=== PATIENT | female | born 1945 | race Caucasian/White ===

== ENCOUNTER 2018-06-18 17:28 | Emergency (ER) | payer MEDICARE, MEDICAID ==
[~2018-06-18] VITALS: Ht 165.1 cm; Wt 55.0 kg
[2018-06-18] MEDS ORDERED: ondansetron/PF 4mg/2ml inj IV ONE (19:10)
[2018-06-18] MEDS ORDERED: normal saline 1000ML IV soln IVB ONE (19:10)
[2018-06-18] MEDS ORDERED: morphine 4 MG/ML inj SYRINge IV PRN (19:10)
[2018-06-18] MEDS ORDERED: TRAM50TA2 PO (20:07)
[2018-06-18] MEDS ORDERED: DOCU-28 PO (20:07)
--- NOTE | 2018-06-18 20:38 | NUR ---
PER PT REQUEST I CONTACTED HER DAUGHTER, FILOMENA REYES, TO GIVE PT RIDE HOME, SHE WILL BE HERE IN APPROX 20 MINUTES
--- NOTE | 2018-06-18 20:55 | NUR ---
PT AMB WITH SLOW STEADY GAIT TO RESTROOM USES CANE
[2018-06-18 20:59] VITALS: BP 153/81
== END 2018-06-18 21:12 | disposition home or self-care (01) ==
LOC: ER 17:29
DX: S29.9XXA Unspecified injury of thorax, initial encounter (principal); I25.10 Atherosclerotic heart disease of native coronary artery without angina pectoris; Z95.1 Presence of aortocoronary bypass graft; Z90.710 Acquired absence of both cervix and uterus; W18.30XA Fall on same level, unspecified, initial encounter; Y93.89 Activity, other specified; Y92.89 Other specified places as the place of occurrence of the external cause; Y99.8 Other external cause status
CPT/HCPCS: 71101; 96374; 96375; 99284; J2270; J2405; J7030

== ENCOUNTER 2018-06-22 10:22 | Emergency (ER) | payer MEDICARE, MEDICAID ==
[~2018-06-22] VITALS: Ht 167.6 cm; Wt 53.6 kg
[~2018-06-22 10:22] MED LIST: DOCU-28 PO; TRAM50TA2 PO
[2018-06-22 10:29] VITALS: BP 159/66
[2018-06-22] MEDS ORDERED: TRAM50TA2 PO (10:46)
[2018-06-22] MEDS ORDERED: DOCU-28 PO (10:46)
== END 2018-06-22 11:03 | disposition home or self-care (01) ==
LOC: ER 10:22
DX: S29.9XXD Unspecified injury of thorax, subsequent encounter (principal); R07.89 Other chest pain; I25.10 Atherosclerotic heart disease of native coronary artery without angina pectoris; Z98.61 Coronary angioplasty status; Z90.710 Acquired absence of both cervix and uterus; Z79.899 Other long term (current) drug therapy; W18.30XD Fall on same level, unspecified, subsequent encounter
CPT/HCPCS: 99283

== ENCOUNTER 2019-12-06 10:40 | Emergency (ER) | payer BC, MEDICAID ==
[~2019-12-06] VITALS: Ht 167.6 cm; Wt 49.1 kg
[~2019-12-06 10:40] MED LIST changes: -TRAM50TA2 PO
[2019-12-06 10:54] VITALS: BP 172/79
--- NOTE | 2019-12-06 12:13 | NUR ---
hands red and swollen from using her cane.
[2019-12-06] MEDS ORDERED: FLUC100T PO (12:31)
== END 2019-12-06 12:43 | disposition home or self-care (01) ==
LOC: ER 10:41
DX: B35.1 Tinea unguium (principal); B35.9 Dermatophytosis, unspecified; I25.10 Atherosclerotic heart disease of native coronary artery without angina pectoris; Z90.710 Acquired absence of both cervix and uterus; Z98.61 Coronary angioplasty status; Z98.890 Other specified postprocedural states; Z79.899 Other long term (current) drug therapy
CPT/HCPCS: 99283

== ENCOUNTER 2019-12-26 16:44 | Emergency (ER) | payer BC, MEDICAID ==
[~2019-12-26] VITALS: Ht 165.1 cm; Wt 49.7 kg
--- NOTE | 2019-12-26 17:25 | NUR ---
DAUGHTER, DORIAN HUSSEIN,
[2019-12-26] MEDS ORDERED: SULF1TAB49 PO (17:35)
== END 2019-12-26 17:51 | disposition home or self-care (01) ==
LOC: ER 16:44
DX: B35.1 Tinea unguium (principal); L30.1 Dyshidrosis [pompholyx]; H00.019 Hordeolum externum unspecified eye, unspecified eyelid; I25.10 Atherosclerotic heart disease of native coronary artery without angina pectoris; F17.200 Nicotine dependence, unspecified, uncomplicated; Z98.61 Coronary angioplasty status; Z90.710 Acquired absence of both cervix and uterus; Z98.890 Other specified postprocedural states; Z72.89 Other problems related to lifestyle; Z79.899 Other long term (current) drug therapy
CPT/HCPCS: 99283

== ENCOUNTER 2020-08-23 17:57 | Emergency (ER) | payer BC, MEDICAID ==
[~2020-08-23] VITALS: Ht 167.6 cm; Wt 52.3 kg
[2020-08-23 19:28] LABS: CLARITY,URINE CLEAR (Clear); COLOR,URINE YELLOW (Yellow); GLUCOSE, URINE NEGATIVE (Neg); KETONES,URINE NEGATIVE (Neg); LEUKOCYTE ESTERASE ,URINE NEGATIVE (Neg); NITRITES, URINE NEGATIVE (Neg); OCCULT BLOOD,URINE SMALL (Neg); PROTEIN,URINE NEGATIVE (Neg); UROBILINOGEN,URINE 0.2 E.U/dL (0.2-1.0)
[2020-08-23 19:32] LABS: UA COLLECTION TYPE CLN CATCH MIDSTREAM
[2020-08-23 19:35] LABS: BACTERIA,URINE FEW /HPF (Neg); SQUAMOUS EPITHELIAL CELL,UR FEW /LPF (FEW); WBC,URINE 0-4 /HPF (0-4)
[2020-08-23 19:46] LABS: BASOPHILS # (AUTO) 0.1 X10'3 (0-0.2); BASOPHILS % (AUTO) 0.8 % (0-1); EOSINOPHILS # (AUTO) 0.1 X10'3 (0-0.9); EOSINOPHILS % (AUTO) 2.1 % (0-6); HEMATOCRIT 42.3 % (35.0-45.0); HEMOGLOBIN 14.3 g/dl (12.0-16.0); LYMPHOCYTES # (AUTO) 1.7 X10'3 (1.1-4.8); LYMPHOCYTES % (AUTO) 25.9 % (21-51); MEAN CORPUSCULAR HEMOGLOBIN 35.5 PG (27.0-31.0); MEAN CORPUSCULAR HGB CONC 33.9 g/dL (33.0-36.5); MEAN CORPUSCULAR VOLUME 104.7 FL (78-98); MEAN PLATELET VOLUME 7.1 FL (7.4-10.4); MONOCYTES # (AUTO) 0.6 X10'3 (0-0.9); MONOCYTES % (AUTO) 9.7 % (2-12); NEUTROPHILS # (AUTO) 4.1 X10'3 (1.8-7.7); NEUTROPHILS % (AUTO) 61.5 % (42-75); PLATELET COUNT 364 X10'3 (140-440); RED BLOOD COUNT 4.04 X10'6 (4.20-5.60); WHITE BLOOD COUNT 6.6 X10'3 (4.5-11.0)
[2020-08-23 19:57] LABS: ALANINE AMINOTRANSFERASE 22 U/L (12-78); ALBUMIN 3.7 G/DL (3.4-5.0); ALKALINE PHOSPHATASE 138 IU/L (46-116); ANION GAP 8 (8-16); ASPARTATE AMINO TRANSFERASE 28 U/L (10-37); BILIRUBIN,TOTAL 0.3 MG/DL (0.1-1.0); BLOOD UREA NITROGEN 22 MG/DL (7-18); BUN/CREATININE RATIO 29.3 (6.6-38.0); CALCIUM 9.3 MG/DL (8.5-10.1); CHLORIDE 98 MMOL/L (99-107); CREATININE 0.75 MG/DL (0.40-0.90); GLUCOSE 102 MG/DL (70-104); POTASSIUM 4.2 MMOL/L (3.5-5.1); SODIUM 137 MMOL/L (135-145); TOTAL CARBON DIOXIDE 30.7 MMOL/L (24-32); TOTAL PROTEIN 7.3 G/DL (6.4-8.2); eGFR 75 ML/MIN
[2020-08-23 21:05] VITALS: BP 126/68
== END 2020-08-23 21:00 | disposition home or self-care (01) ==
LOC: ER 17:58
DX: M54.5 Low back pain (principal); I25.10 Atherosclerotic heart disease of native coronary artery without angina pectoris; Z90.710 Acquired absence of both cervix and uterus; Z98.890 Other specified postprocedural states; Z72.89 Other problems related to lifestyle; Z79.899 Other long term (current) drug therapy
CPT/HCPCS: 36415; 72110; 80053; 81001; 85025; 99284

== ENCOUNTER 2020-10-20 10:49 | Emergency (ER) | payer BC, MEDICAID ==
[~2020-10-20] VITALS: Ht 165.1 cm; Wt 54.5 kg
[2020-10-20 11:06] VITALS: BP 136/67
== END 2020-10-20 18:57 | disposition left against medical advice (07) ==
LOC: ER 10:50
DX: R42 Dizziness and giddiness (principal); Z53.21 Procedure and treatment not carried out due to patient leaving prior to being seen by health care provider
CPT/HCPCS: 93005

== ENCOUNTER 2021-01-12 22:05 | Inpatient (IN) | payer BC, MEDICAID ==
[~2021-01-12] VITALS: Ht 165.1 cm; Wt 50.0 kg
[2021-01-12] MEDS ORDERED: aspirin 81mg tab.chew PO ONE (22:25)
[2021-01-12 22:57] LABS: BASOPHILS # (AUTO) 0.1 X10'3 (0-0.2); BASOPHILS % (AUTO) 1.2 % (0-1); EOSINOPHILS # (AUTO) 0.2 X10'3 (0-0.9); EOSINOPHILS % (AUTO) 4.2 % (0-6); HEMATOCRIT 46.2 % (35.0-45.0); HEMOGLOBIN 15.7 g/dl (12.0-16.0); LYMPHOCYTES # (AUTO) 1.8 X10'3 (1.1-4.8); LYMPHOCYTES % (AUTO) 29.7 % (21-51); MEAN CORPUSCULAR HEMOGLOBIN 34.4 PG (27.0-31.0); MEAN CORPUSCULAR HGB CONC 34.1 g/dL (33.0-36.5); MEAN PLATELET VOLUME 7.1 FL (7.4-10.4); MONOCYTES # (AUTO) 0.3 X10'3 (0-0.9); MONOCYTES % (AUTO) 4.9 % (2-12); NEUTROPHILS # (AUTO) 3.6 X10'3 (1.8-7.7); PLATELET COUNT 278 X10'3 (140-440); RED BLOOD COUNT 4.57 X10'6 (4.20-5.60); RED CELL DISTRIBUTION WIDTH 14.3 % (11.5-14.5)
[2021-01-12 23:10] LABS: ALANINE AMINOTRANSFERASE 128 U/L (12-78); ALBUMIN 3.6 G/DL (3.4-5.0); ALBUMIN/GLOBULIN RATIO 0.9 (1.1-1.5); ALKALINE PHOSPHATASE 163 IU/L (46-116); ANION GAP 9 (8-16); ASPARTATE AMINO TRANSFERASE 88 U/L (10-37); BILIRUBIN,TOTAL 0.3 MG/DL (0.1-1.0); BLOOD UREA NITROGEN 13 MG/DL (7-18); BUN/CREATININE RATIO 11.7 (6.6-38.0); CALCIUM 9.3 MG/DL (8.5-10.1); CHLORIDE 99 MMOL/L (99-107); CREATININE 1.11 MG/DL (0.40-0.90); GLUCOSE 130 MG/DL (70-104); POTASSIUM 3.7 MMOL/L (3.5-5.1); SODIUM 137 MMOL/L (135-145); TOTAL CARBON DIOXIDE 28.8 MMOL/L (24-32); TOTAL PROTEIN 7.4 G/DL (6.4-8.2); eGFR 48 ML/MIN
[2021-01-12 23:17] LABS: MAGNESIUM 2.6 MG/DL (1.5-2.4)
[2021-01-12] MEDS ORDERED: LISI10TA27 PO (23:32)
[2021-01-12] MEDS ORDERED: LEVO75TA7 PO (23:32)
[2021-01-13] VITALS (10 sets, daily range): BP systolic 86–124; BP diastolic 50–73
[2021-01-13] MEDS ORDERED: potassium Cl 40MEQ/1/2NS 520ml 520 ML IV PRN ×2 (01:40)
[2021-01-13] MEDS ORDERED: magnesium hydroxide 30ml (MOM) UD suspension PO PRN (01:40)
[2021-01-13] MEDS ORDERED: ondansetron/PF 4mg/2ml inj IV PRN (01:40)
[2021-01-13] MEDS ORDERED: HYDROcodone/acetaminophen 5mg/325mg tablet PO PRN (01:40)
[2021-01-13] MEDS ORDERED: potassium Cl 20 mEq SR tablet PO PRN ×2 (01:40)
[2021-01-13] MEDS ORDERED: PERFLUTREN PROTEIN-A MICROSPHR (Optison) 0.22 MG/ML 3ML VIAL IV PRN (01:40)
[2021-01-13] MEDS ORDERED: acetaminophen 325mg tablet PO PRN (01:40)
[2021-01-13] MEDS ORDERED: mag hydrox/Alum hydrox/simeth 30ml oral suspension PO PRN (01:40)
[2021-01-13] MEDS ORDERED: nitroGLYCERIN 0.4mg SUBLingual tab SL PRN (01:45)
[2021-01-13] MEDS ORDERED: regadenoson 0.4mg/5ml syringe IV PRN (01:45)
[2021-01-13] MEDS ORDERED: metoprolol tartrate 1mg/ml inj IV PRN (01:45)
[2021-01-13] MEDS ORDERED: aminophylline 250mg/10ml inj. IV PRN (01:45)
[2021-01-13] MEDS: normal saline 1000ml 1,000 ML IV SCH ×2 (02:27→06:47)
--- NOTE | 2021-01-13 05:16 | NUR ---
Patient in room ED 5. I have received report from Karma PETERSON, ED RN and had the opportunity to ask questions and assume patient care.
--- NOTE | 2021-01-13 05:30 | NUR ---
Pt. arrived via gurney to 3012B in no acute distress. Transferred to bed w/o incident. Oriented to bed, room, and POC. Telemetry applied, SB noted. Other VS stable.
--- NOTE | 2021-01-13 06:47 | NUR ---
Problems reprioritized. Patient report given, questions answered & plan of care reviewed with Poncho PETERSON.
[2021-01-13] MEDS ORDERED: docusate sod 100mg capsule PO SCH (08:00)
[2021-01-13] MEDS ORDERED: levoTHYROXINE 75mcg tablet PO SCH (08:00)
[2021-01-13] MEDS ORDERED: lisinopril 10 MG tablet PO SCH (08:00)
[2021-01-13] MEDS ORDERED: aspirin 81mg, enteric-coated 1 TAB TABLET.DR PO SCH (08:00)
[2021-01-13] MEDS ORDERED: heparin, porcine 5000 units/ml vial SQ SCH (08:00)
[2021-01-13] MEDS ORDERED: K and/or MAG REPLACEMENT MC SCH (08:00)
--- NOTE | 2021-01-13 10:34 | NUR ---
Noted pt with a low BMI however current documented wt isn't scaled. Limited information in EMR as pt just admit. Per ED report pt appears well developed well nourished. Current documented wt likely inaccurate. Will continue to follow. Addendum: 01/13/21 at [address] Amended: Links added.
--- NOTE | 2021-01-13 15:57 | NUR ---
patient discharged home with daughter on a private car. patient was escorted off unit with junior staff accountant on a wheelchair. patient was alert and oriented x 4 with stable vital signs. patient took out the PIV on left AC. patient was not bleeding, catheter tip was intact. patient given a verbal and written discharge instruction.
== END 2021-01-13 16:14 | disposition home or self-care (01) | DRG 313 ==
LOC: ER 22:06 → ED HOLD 01-13 01:43 → PCU 3S 01-13 05:45
PROVIDERS: ADMIT Internal Medicine; ATTEND Internal Medicine
PROC: 4A02XM4 Measurement of Cardiac Total Activity, External Approach (ICD-10-PCS; principal; 2021-01-13)
PROC: 3E073KZ Introduction of Other Diagnostic Substance into Coronary Artery, Percutaneous Approach (ICD-10-PCS; 2021-01-13)
DX: R07.89 Other chest pain (principal); E03.9 Hypothyroidism, unspecified; I25.119 Atherosclerotic heart disease of native coronary artery with unspecified angina pectoris; F03.90 Unspecified dementia, unspecified severity, without behavioral disturbance, psychotic disturbance, mood disturbance, and anxiety; F17.200 Nicotine dependence, unspecified, uncomplicated; I10 Essential (primary) hypertension; Z90.710 Acquired absence of both cervix and uterus; Z98.2 Presence of cerebrospinal fluid drainage device; Z98.61 Coronary angioplasty status; Z79.899 Other long term (current) drug therapy; Z79.890 Hormone replacement therapy
CPT/HCPCS: 36415; 71045; 78452; 80053; 83735; 83880; 84484; 85025; 85610; 93005; 93017; 93306; 99285; A9500; G0378; J1644; J2785; J7030

== ENCOUNTER 2022-01-04 06:22 | Inpatient (IN) | payer BC, MEDICAID ==
[~2022-01-04] VITALS: Ht 166.4 cm; Wt 59.4 kg
[~2022-01-04 06:22] MED LIST changes: -DOCU-28 PO; +LEVO75TA7 PO; +LISI10TA27 PO
[2022-01-04] MEDS ORDERED: albuterol 2.5 MG/3 ML nebule CONTNEB PRN (07:05)
[2022-01-04] MEDS ORDERED: methylPREDNISolone sod succ 125mg/2ml vial IV ONE (07:05)
[2022-01-04 07:19] LABS: BASOPHILS % (AUTO) 0.5 % (0-1); EOSINOPHILS # (AUTO) 0.5 X10'3 (0-0.9); EOSINOPHILS % (AUTO) 4.9 % (0-6); HEMATOCRIT 40.4 % (35.0-45.0); HEMOGLOBIN 13.8 g/dl (12.0-16.0); LYMPHOCYTES # (AUTO) 2.1 X10'3 (1.1-4.8); LYMPHOCYTES % (AUTO) 21.1 % (21-51); MEAN CORPUSCULAR HEMOGLOBIN 33.5 PG (27.0-31.0); MEAN CORPUSCULAR HGB CONC 34.3 g/dL (33.0-36.5); MEAN CORPUSCULAR VOLUME 97.9 FL (78-98); MEAN PLATELET VOLUME 7.8 FL (7.4-10.4); MONOCYTES # (AUTO) 0.6 X10'3 (0-0.9); MONOCYTES % (AUTO) 5.7 % (2-12); NEUTROPHILS # (AUTO) 6.8 X10'3 (1.8-7.7); NEUTROPHILS % (AUTO) 67.8 % (42-75); PLATELET COUNT 305 X10'3 (140-440); RED BLOOD COUNT 4.12 X10'6 (4.20-5.60); RED CELL DISTRIBUTION WIDTH 13.9 % (11.5-14.5)
[2022-01-04 07:32] LABS: ALANINE AMINOTRANSFERASE 22 U/L (12-78); ALBUMIN 3.3 G/DL (3.4-5.0); ALKALINE PHOSPHATASE 84 IU/L (46-116); ANION GAP 8 (8-16); ASPARTATE AMINO TRANSFERASE 21 U/L (10-37); BILIRUBIN,TOTAL 0.3 MG/DL (0.1-1.0); BLOOD UREA NITROGEN 12 MG/DL (7-18); BUN/CREATININE RATIO 17.1 (6.6-38.0); CALCIUM 8.9 MG/DL (8.5-10.1); CHLORIDE 104 MMOL/L (99-107); GLUCOSE 99 MG/DL (70-104); POTASSIUM 4.2 MMOL/L (3.5-5.1); SODIUM 141 MMOL/L (135-145); TOTAL CARBON DIOXIDE 29.5 MMOL/L (24-32); TOTAL PROTEIN 6.7 G/DL (6.4-8.2); eGFR 81 ML/MIN
[2022-01-04] MEDS ORDERED: ALBU18HF2 INH ×2 (10:30)
[2022-01-04] MEDS ORDERED: INHA1EAC9 INH ×2 (10:30)
[2022-01-04] MEDS ORDERED: meclizine 12.5mg tablet PO ONE (11:05)
[2022-01-04] MEDS ORDERED: magnesium 2GM in 50ml NS 50 ML IV PRN (11:30)
[2022-01-04] MEDS ORDERED: mag hydrox/Alum hydrox/simeth 30ml oral suspension PO PRN (11:30)
[2022-01-04] MEDS ORDERED: HYDROcodone/acetaminophen 10/325mg tab PO PRN (11:30)
[2022-01-04] MEDS ORDERED: potassium CL 10mEq/100ml bag 100 ML IV PRN (11:30)
[2022-01-04] MEDS ORDERED: acetaminophen 325mg tablet PO PRN ×2 (11:30)
[2022-01-04] MEDS ORDERED: ondansetron 4mg rapidly disintigrating tab PO PRN (11:30)
[2022-01-04] MEDS ORDERED: magnesium hydroxide 30ml (MOM) UD suspension PO PRN (11:30)
[2022-01-04] MEDS ORDERED: ondansetron/PF 4mg/2ml inj IV PRN (11:30)
[2022-01-04] MEDS ORDERED: magnesium Cl slow-release 64mg tablet PO PRN (11:30)
[2022-01-04] MEDS ORDERED: magnesium 4gm in 100ml NS 100 ML IV PRN (11:30)
[2022-01-04] MEDS ORDERED: acetaminophen 650mg rectal suppository RC PRN (11:30)
[2022-01-04] MEDS ORDERED: HYDROcodone/acetaminophen 5mg/325mg tablet PO PRN (11:30)
[2022-01-04] MEDS ORDERED: ipratropium/albuterol 3ml nebule NEB PRN (11:30)
[2022-01-04] MEDS ORDERED: bisacodyl 10mg suppository rectal RC PRN (11:30)
[2022-01-04] MEDS ORDERED: POTASSIUM BICARB 20meq eff tab 20 MEQ TABLET.EFF PO PRN ×2 (11:30)
[2022-01-04 12:23] LABS: MAGNESIUM 1.9 MG/DL (1.5-2.4)
[2022-01-04 12:27] LABS: POTASSIUM 4.2 MMOL/L (3.5-5.1)
[2022-01-04] MEDS ORDERED: MEMA5TAB42 PO (12:58)
[2022-01-04] MEDS ORDERED: ALBU17AE26 PO (12:58)
[2022-01-04] MEDS ORDERED: PRAV40TA3 PO (12:58)
[2022-01-04] MEDS ORDERED: LEVO125T8 PO (12:58)
[2022-01-04] MEDS ORDERED: LOSA100T57 PO (12:58)
[2022-01-04] MEDS: ipratropium/albuterol 3ml nebule NEB SCH ×3 (14:34→23:00)
--- NOTE | 2022-01-04 14:36 | NUR ---
PATIENT UP TO BEDSIDE COMMODE AT THIS TIME WITH ASSISTANCE.
[2022-01-04] MEDS: methylPREDNISolone sod succ 125mg/2ml vial IV SCH ×2 (14:53→20:52)
[2022-01-04] MEDS: normal saline 1000ml 1,000 ML IV SCH (14:53)
--- NOTE | 2022-01-04 17:44 | NUR ---
PATIENT BROUGHT TO ROOM ON [place] FROM ED. TRANSFERRED TO ROOM BED, ALERT AND ORIENTED, PLACED ON 2L NC, IV FLUIDS STARTED ORDERED. WILL REPORT TO NOC SHIFT ADMISSION PROCESS NEEDS TO BE COMPLETED WELL SKIN CHECK.
[2022-01-04 18:00] VITALS: BP 131/49
--- NOTE | 2022-01-04 18:40 | NUR ---
Patient in room PCU 3013. I have received report from NICHOLAS Nix and had the opportunity to ask questions and assume patient care.
[2022-01-04] MEDS: K and/or MAG REPLACEMENT MC SCH (20:00)
[2022-01-04] MEDS: docusate sod 100mg capsule PO SCH (20:51)
[2022-01-04] MEDS: enoxaparin 40mg/0.4ml syringe SQ SCH (20:52)
[2022-01-04] MEDS: atorvastatin 20mg tablet PO SCH (20:52)
[2022-01-04] MEDS: losartan 50mg tablet PO SCH (20:52)
[2022-01-04] MEDS ORDERED: temazepam 15mg capsule PO PRN (21:00)
[2022-01-04 22:00] VITALS: BP 128/56
[2022-01-05 02:00] VITALS: BP 143/63
[2022-01-05] MEDS: methylPREDNISolone sod succ 125mg/2ml vial IV SCH ×4 (03:07→21:00)
[2022-01-05] MEDS: normal saline 1000ml 1,000 ML IV SCH ×2 (03:55→16:36)
[2022-01-05 06:00] VITALS: BP 146/54
--- NOTE | 2022-01-05 06:15 | NUR ---
Problems reprioritized. Patient report given, questions answered & plan of care reviewed with NICHOLAS Brewster.
[2022-01-05 07:28] LABS: BASOPHILS % (AUTO) 0.1 % (0-1); EOSINOPHILS % (AUTO) 0 % (0-6); HEMOGLOBIN 12.8 g/dl (12.0-16.0); LYMPHOCYTES # (AUTO) 0.7 X10'3 (1.1-4.8); LYMPHOCYTES % (AUTO) 7.5 % (21-51); MEAN CORPUSCULAR HEMOGLOBIN 33.8 PG (27.0-31.0); MEAN CORPUSCULAR HGB CONC 34.8 g/dL (33.0-36.5); MEAN CORPUSCULAR VOLUME 97.3 FL (78-98); MONOCYTES # (AUTO) 0.2 X10'3 (0-0.9); MONOCYTES % (AUTO) 2.3 % (2-12); NEUTROPHILS # (AUTO) 8.8 X10'3 (1.8-7.7); NEUTROPHILS % (AUTO) 90.1 % (42-75); PLATELET COUNT 266 X10'3 (140-440); RED CELL DISTRIBUTION WIDTH 14.1 % (11.5-14.5); WHITE BLOOD COUNT 9.7 X10'3 (4.5-11.0)
[2022-01-05] MEDS ORDERED: levoTHYROXINE 125mcg tablet PO SCH (07:30)
[2022-01-05] MEDS: ipratropium/albuterol 3ml nebule NEB SCH ×5 (07:42→23:00)
[2022-01-05 07:58] LABS: ALANINE AMINOTRANSFERASE 18 U/L (12-78); ALBUMIN 2.8 G/DL (3.4-5.0); ALBUMIN/GLOBULIN RATIO 0.9 (1.1-1.5); ALKALINE PHOSPHATASE 71 IU/L (46-116); ANION GAP 8 (8-16); ASPARTATE AMINO TRANSFERASE 16 U/L (10-37); BILIRUBIN,TOTAL 0.3 MG/DL (0.1-1.0); BLOOD UREA NITROGEN 20 MG/DL (7-18); BUN/CREATININE RATIO 33.3 (6.6-38.0); CALCIUM 8.5 MG/DL (8.5-10.1); CHLORIDE 107 MMOL/L (99-107); GLUCOSE 136 MG/DL (70-104); MAGNESIUM 2.1 MG/DL (1.5-2.4); POTASSIUM 4.1 MMOL/L (3.5-5.1); SODIUM 142 MMOL/L (135-145); TOTAL CARBON DIOXIDE 27.3 MMOL/L (24-32); eGFR > 90 ML/MIN
[2022-01-05] MEDS: docusate sod 100mg capsule PO SCH ×2 (08:00→20:59)
[2022-01-05] MEDS: K and/or MAG REPLACEMENT MC SCH ×2 (08:00→20:00)
[2022-01-05] MEDS: losartan 50mg tablet PO SCH (08:38)
--- NOTE | 2022-01-05 10:07 | NUR ---
sent to Dr. Nicholas: [id number] Liz: pt drinks large amounts of whiskey nightly. also heavy smoker. need orders for etoh withdrawal and nicotine patch please. thank you. Narcisa PETERSON
[2022-01-05] MEDS ORDERED: nicotine 14mg patch - 24hr TD ONE (10:25)
[2022-01-05] MEDS ORDERED: LORazepam 1 MG tablet PO PRN (10:25)
[2022-01-05] MEDS ORDERED: haloperidol 5mg tablet PO PRN (10:25)
[2022-01-05] MEDS ORDERED: haloperidol lactate 5mg/ml inj IM PRN (10:25)
[2022-01-05] MEDS ORDERED: LORazepam 2 mg/ml vial IV PRN (10:25)
[2022-01-05] MEDS: memantine 5mg tablet PO SCH (13:01)
[2022-01-05 15:00] VITALS: BP 134/48
--- NOTE | 2022-01-05 15:57 | NUR ---
notified Dr. Nicholas about heart rate in 140's. Pt is withdrawing from alcohol. High heart rate is expected per MD.
[2022-01-05 18:00] VITALS: BP 138/71
--- NOTE | 2022-01-05 18:25 | NUR ---
Patient in room PCU 3013. I have received report from NICHOLAS Brewster and had the opportunity to ask questions and assume patient care.
[2022-01-05] MEDS: atorvastatin 20mg tablet PO SCH (20:59)
[2022-01-05] MEDS: enoxaparin 40mg/0.4ml syringe SQ SCH (21:00)
[2022-01-05 22:00] VITALS: BP 143/63
[2022-01-06 02:00] VITALS: BP 160/65
[2022-01-06] MEDS: methylPREDNISolone sod succ 125mg/2ml vial IV SCH ×3 (02:07→14:44)
[2022-01-06] MEDS: normal saline 1000ml 1,000 ML IV SCH (05:23)
[2022-01-06 06:00] VITALS: BP 170/79
--- NOTE | 2022-01-06 06:47 | NUR ---
Problems reprioritized. Patient report given, questions answered & plan of care reviewed with NICHOLAS Paiz.
--- NOTE | 2022-01-06 06:50 | NUR ---
Patient in room PCU 3013. I have received report from Page PETERSON and had the opportunity to ask questions and assume patient care.
[2022-01-06] MEDS ORDERED: levoTHYROXINE 100mcg tablet PO SCH (07:30)
[2022-01-06] MEDS: ipratropium/albuterol 3ml nebule NEB SCH ×2 (07:38→11:49)
[2022-01-06] MEDS ORDERED: multivitamins, therapeutics tablet PO SCH (08:00)
[2022-01-06] MEDS ORDERED: nicotine 14mg patch - 24hr TD SCH (08:00)
[2022-01-06] MEDS: K and/or MAG REPLACEMENT MC SCH (08:00)
[2022-01-06 08:44] LABS: BASOPHILS % (AUTO) 0 % (0-1); EOSINOPHILS % (AUTO) 0 % (0-6); HEMATOCRIT 40.5 % (35.0-45.0); HEMOGLOBIN 13.4 g/dl (12.0-16.0); LYMPHOCYTES # (AUTO) 0.5 X10'3 (1.1-4.8); LYMPHOCYTES % (AUTO) 4.5 % (21-51); MEAN CORPUSCULAR HEMOGLOBIN 32.9 PG (27.0-31.0); MEAN CORPUSCULAR HGB CONC 33.1 g/dL (33.0-36.5); MEAN CORPUSCULAR VOLUME 99.4 FL (78-98); MEAN PLATELET VOLUME 8.4 FL (7.4-10.4); MONOCYTES # (AUTO) 0.3 X10'3 (0-0.9); MONOCYTES % (AUTO) 2.2 % (2-12); NEUTROPHILS # (AUTO) 11.3 X10'3 (1.8-7.7); NEUTROPHILS % (AUTO) 93.3 % (42-75); PLATELET COUNT 270 X10'3 (140-440); RED BLOOD COUNT 4.07 X10'6 (4.20-5.60); RED CELL DISTRIBUTION WIDTH 14.1 % (11.5-14.5); WHITE BLOOD COUNT 12.1 X10'3 (4.5-11.0)
[2022-01-06 09:06] LABS: ALANINE AMINOTRANSFERASE 18 U/L (12-78); ALBUMIN 3.1 G/DL (3.4-5.0); ALBUMIN/GLOBULIN RATIO 0.9 (1.1-1.5); ALKALINE PHOSPHATASE 69 IU/L (46-116); ANION GAP 10 (8-16); ASPARTATE AMINO TRANSFERASE 13 U/L (10-37); BILIRUBIN,TOTAL 0.3 MG/DL (0.1-1.0); BLOOD UREA NITROGEN 16 MG/DL (7-18); BUN/CREATININE RATIO 25.8 (6.6-38.0); CALCIUM 8.8 MG/DL (8.5-10.1); CHLORIDE 105 MMOL/L (99-107); CREATININE 0.62 MG/DL (0.40-0.90); GLUCOSE 126 MG/DL (70-104); MAGNESIUM 2.1 MG/DL (1.5-2.4); SODIUM 142 MMOL/L (135-145); TOTAL CARBON DIOXIDE 27.4 MMOL/L (24-32); TOTAL PROTEIN 6.6 G/DL (6.4-8.2); eGFR > 90 ML/MIN
[2022-01-06] MEDS: losartan 50mg tablet PO SCH (09:37)
[2022-01-06] MEDS: docusate sod 100mg capsule PO SCH (09:38)
[2022-01-06] MEDS: memantine 5mg tablet PO SCH (09:38)
[2022-01-06 10:00] VITALS: BP 160/62
[2022-01-06] MEDS ORDERED: FOLI1TAB27 PO (12:08)
[2022-01-06] MEDS ORDERED: NICO-631 TD (12:08)
[2022-01-06] MEDS ORDERED: DIVA125T9 PO (12:08)
[2022-01-06] MEDS ORDERED: NALT50TA PO (12:08)
[2022-01-06] MEDS ORDERED: THIA100T70 PO (12:08)
[2022-01-06] MEDS ORDERED: MULT-25 PO (12:08)
[2022-01-06] MEDS ORDERED: PRED10TA PO (12:09)
--- NOTE | 2022-01-06 16:36 | NUR ---
patient appears stable forgetful at times. Seen by Dr Washington, is for DC. All Dc instructions given to patient. patient Dc home via private car with family member in stable conditions
[2022-01-10] MEDS ORDERED: thiamine 100mg tablet PO SCH (08:00)
[2022-01-10] MEDS ORDERED: folic acid 1mg tablet PO SCH (08:00)
== END 2022-01-06 15:50 | disposition home health service (06) | DRG 189 ==
LOC: ER 06:22 → ED HOLD 11:31 → PCU 3S 17:24
PROVIDERS: ADMIT Family Medicine; ATTEND Family Medicine
DX: J96.01 Acute respiratory failure with hypoxia (principal); F02.818 Dementia in other diseases classified elsewhere, unspecified severity, with other behavioral disturbance; F10.239 Alcohol dependence with withdrawal, unspecified; J44.1 Chronic obstructive pulmonary disease with (acute) exacerbation; Z20.822 Contact with and (suspected) exposure to COVID-19; E03.9 Hypothyroidism, unspecified; E78.5 Hyperlipidemia, unspecified; F17.200 Nicotine dependence, unspecified, uncomplicated; G30.9 Alzheimer's disease, unspecified; I10 Essential (primary) hypertension; I25.10 Atherosclerotic heart disease of native coronary artery without angina pectoris; Z90.710 Acquired absence of both cervix and uterus; Z98.2 Presence of cerebrospinal fluid drainage device; Z79.899 Other long term (current) drug therapy
CPT/HCPCS: 36415; 71045; 80053; 82948; 83735; 83880; 84132; 84443; 84484; 85025; 87502; 87503; 87635; 93005; 94640; 94760; 97161; 97530; 99285; A4615; A7015; C9803; G0378; J1650; J2060; J2930; J7030; J8597